=== PATIENT | female | born 1975 | race Caucasian/White ===

== ENCOUNTER 2020-09-07 11:04 | Inpatient (IN) | payer OTHER ==
[~2020-09-07] VITALS: Ht 165.1 cm; Wt 116.0 kg
[2020-09-07] MEDS ORDERED: HYDR25TA84 PO (11:10)
[2020-09-07] MEDS ORDERED: ATOR20TA86 PO (11:10)
[2020-09-07] MEDS ORDERED: CHOL100044 PO (11:10)
[2020-09-07] MEDS ORDERED: FERR325T24 PO (11:10)
[2020-09-07] MEDS ORDERED: FURO40 PO (11:10)
[2020-09-07] MEDS ORDERED: ASPI-1450 PO (11:10)
[2020-09-07] MEDS ORDERED: LOSA50TA37 PO (11:10)
[2020-09-07] MEDS ORDERED: HydrALAZINE HCL 20 MG/ML VIAL IVP ONE ×3 (11:15→14:45)
[2020-09-07 12:03] LABS: BASOPHILS % (AUTO) 0.5 % (0.0-2.0); EOSINOPHILS % (AUTO) 0.5 % (1.0-6.0); HEMATOCRIT 37.3 % (36-46); HEMOGLOBIN 11.9 g/dL (12.0-16.0); LYMPHOCYTES # (AUTO) 2.2 K/uL (1.0-4.8); LYMPHOCYTES % (AUTO) 20.1 % (22.0-44.0); MEAN CORPUSCULAR HEMOGLOBIN 24.4 pg (26.0-34.0); MEAN CORPUSCULAR VOLUME 76 fL (80-100); MONOCYTES # (AUTO) 0.5 K/uL (0.1-1.0); MONOCYTES % (AUTO) 4.8 % (2.0-9.0); NEUTROPHILS # (AUTO) 7.9 K/uL (1.8-7.7); NEUTROPHILS % (AUTO) 74.1 % (40.0-70.0); PLATELET COUNT (AUTO) 253 K/uL (150-450); RED BLOOD CELL COUNT(AUTO) 4.89 MIL/uL (4.00-5.20)
[2020-09-07 12:17] LABS: ANION GAP 10 mmol/L (8-16); CALCIUM, TOTAL 8.9 mg/dL (8.8-10.5); CARBON DIOXIDE 27 mmol/L (22-29); CHLORIDE 102 mmol/L (98-107); CREATININE 0.94 mg/dL (0.60-1.30); GLOMERULAR FILTR. RATE CALC > 60 mL/min (>60); GLUCOSE,RANDOM 104 mg/dL (70-110); POTASSIUM 3.9 mmol/L (3.5-5.1); SODIUM SERUM 139 mmol/L (136-145); UREA NITROGEN, BLOOD 15 mg/dL (7-18)
[2020-09-07 12:27] LABS: ALANINE AMINOTRANSFERASE 16 U/L (12-78); ALBUMIN 3.3 g/dL (3.4-5.0); ALKALINE PHOSPHATASE 89 U/L (46-116); ASPARTATE AMINOTRANSFERASE 13 U/L (15-37); BILIRUBIN,TOTAL 0.3 mg/dL (0.1-1.0); CREATINE KINASE, TOTAL ONLY 32 U/L (26-192); HCG,QUANTITATIVE < 1 mIU/mL (0-6); TOTAL PROTEIN, SERUM 7.7 g/dL (6.4-8.2)
[2020-09-07 12:32] LABS: B-TYPE NATRIURETIC PEPTIDE 236 pg/mL (0-100)
[2020-09-07 12:55] LABS: PROTHROMBIN TIME 10.8 SEC (9.4-11.6)
[2020-09-07] MEDS ORDERED: MORPHINE SULFATE 4 MG/ML SYRINGE IVP ONE (13:30)
[2020-09-07] MEDS ORDERED: ONDANSETRON HCL 4 MG/2 ML VIAL IVP ONE (13:30)
[2020-09-07] MEDS ORDERED: CloNIDine HCL 0.1 MG TABLET PO ONE (13:45)
[2020-09-07] MEDS ORDERED: NITROGLYCERIN 2% (1 GM=INCH) PACKET TP ONE (14:45)
[2020-09-07 16:55] LABS: COVID AG,FIA SOURCE NASOPHARYNGEAL
[2020-09-07] MEDS ORDERED: FUROSEMIDE 40 MG/4 ML VIAL IVP ONE (18:00)
[2020-09-07 19:36] VITALS: BP 166/97
[2020-09-07] MEDS ORDERED: MAGNESIUM HYDROXIDE SUSPENSION 30 ML UDCUP PO PRN (20:30)
[2020-09-07] MEDS ORDERED: BISACODYL 10 MG RECTAL RECTAL SUPPOSITORY PR PRN (20:30)
[2020-09-07] MEDS ORDERED: MORPHINE SULFATE 2 MG/ML SYRINGE IVP PRN (20:30)
[2020-09-07] MEDS ORDERED: ONDANSETRON HCL 4 MG/2 ML VIAL IVP PRN (20:30)
[2020-09-07] MEDS ORDERED: ZOLPIDEM TARTRATE 5 MG TABLET PO PRN (20:30)
[2020-09-07] MEDS ORDERED: IPRATROPIUM BROMIDE 0.5 MG/2.5 ML NEB SOLUTION NEB PRN (20:30)
[2020-09-07] MEDS ORDERED: ALBUTEROL SULFATE 2.5 MG/0.5 ML NEB SOLUTION NEB PRN (20:30)
[2020-09-07] MEDS: FUROSEMIDE 40 MG TABLET PO SCH (21:35)
[2020-09-08] VITALS (9 sets, daily range): BP systolic 149–201; BP diastolic 70–116
[2020-09-08] MEDS: HEPARIN SODIUM,PORCINE 5,000 UNITS/ML VIAL SQ SCH ×4 (00:19→16:35)
[2020-09-08] MEDS: HydrALAZINE HCL 20 MG/ML VIAL IVP PRN (06:04)
[2020-09-08] MEDS: FUROSEMIDE 40 MG TABLET PO SCH ×2 (08:16→21:59)
[2020-09-08] MEDS: FERROUS SULFATE 325 MG EC TABLET PO SCH ×2 (09:00→11:03)
[2020-09-08] MEDS: ASPIRIN 81 MG CHEWABLE TABLET PO SCH ×2 (09:00→11:04)
[2020-09-08] MEDS: ATORVASTATIN CALCIUM 20 MG TABLET PO SCH ×2 (09:00→11:04)
[2020-09-08] MEDS: LOSARTAN POTASSIUM 50 MG TABLET PO SCH ×2 (09:00→11:04)
[2020-09-08] MEDS: CHOLECALCIFEROL (VIT D3) 1,000 UNITS [25 MCG] TABLET PO SCH ×2 (09:00→11:04)
[2020-09-08] MEDS ORDERED: SESTAMIBI TC99M/UD ISOTOPE 1 EA INJ INJ ONE ×2 (09:50→10:40)
[2020-09-08] MEDS: AmLODIPine BESYLATE 5 MG TABLET PO SCH ×4 (10:15→21:59)
[2020-09-08] MEDS: METOPROLOL SUCCINATE 50 MG ER TABLET PO SCH (10:15)
[2020-09-08] MEDS: ACETAMINOPHEN 325 MG TABLET PO PRN (18:14)
[2020-09-09] MEDS: HEPARIN SODIUM,PORCINE 5,000 UNITS/ML VIAL SQ SCH ×3 (00:08→16:23)
[2020-09-09 05:04] VITALS: BP 187/93
[2020-09-09] MEDS: HydrALAZINE HCL 20 MG/ML VIAL IVP PRN (05:12)
[2020-09-09] MEDS: HYDROCODONE/ACETAMINOPHEN 5-325 MG TABLET PO PRN ×2 (05:13→09:46)
[2020-09-09 07:09] VITALS: BP 179/99
[2020-09-09] MEDS: CHOLECALCIFEROL (VIT D3) 1,000 UNITS [25 MCG] TABLET PO SCH (07:58)
[2020-09-09] MEDS: ASPIRIN 81 MG CHEWABLE TABLET PO SCH (07:58)
[2020-09-09] MEDS: FUROSEMIDE 40 MG TABLET PO SCH ×2 (07:59→20:59)
[2020-09-09] MEDS: AmLODIPine BESYLATE 5 MG TABLET PO SCH ×2 (07:59→20:59)
[2020-09-09] MEDS: METOPROLOL SUCCINATE 50 MG ER TABLET PO SCH (07:59)
[2020-09-09] MEDS: FERROUS SULFATE 325 MG EC TABLET PO SCH (07:59)
[2020-09-09] MEDS: LOSARTAN POTASSIUM 50 MG TABLET PO SCH (07:59)
[2020-09-09] MEDS: ATORVASTATIN CALCIUM 20 MG TABLET PO SCH (08:10)
[2020-09-09 11:15] VITALS: BP 158/71
[2020-09-09 16:17] VITALS: BP 143/73
[2020-09-09 17:50] LABS: BASOPHILS % (AUTO) 0.6 % (0.0-2.0); EOSINOPHILS % (AUTO) 0.6 % (1.0-6.0); HEMATOCRIT 37.8 % (36-46); LYMPHOCYTES # (AUTO) 2.6 K/uL (1.0-4.8); LYMPHOCYTES % (AUTO) 30.6 % (22.0-44.0); MEAN CORPUSCULAR HEMOGLOBIN 24.5 pg (26.0-34.0); MEAN CORPUSCULAR HGB CONC 31.6 G/dL (31.0-37.0); MEAN CORPUSCULAR VOLUME 78 fL (80-100); MONOCYTES # (AUTO) 0.7 K/uL (0.1-1.0); MONOCYTES % (AUTO) 7.8 % (2.0-9.0); NEUTROPHILS # (AUTO) 5.1 K/uL (1.8-7.7); NEUTROPHILS % (AUTO) 60.4 % (40.0-70.0); PLATELET COUNT (AUTO) 298 K/uL (150-450); RED BLOOD CELL COUNT(AUTO) 4.88 MIL/uL (4.00-5.20); RED CELL DISTRIBUTION WIDTH 17.4 % (11.5-14.5)
[2020-09-09 18:06] LABS: CALCIUM, TOTAL 8.8 mg/dL (8.8-10.5); CREATININE 1.42 mg/dL (0.60-1.30); POTASSIUM 4.2 mmol/L (3.5-5.1)
[2020-09-09 18:26] LABS: ALBUMIN 3.2 g/dL (3.4-5.0); BILIRUBIN,TOTAL 0.3 mg/dL (0.1-1.0); TOTAL PROTEIN, SERUM 7.6 g/dL (6.4-8.2)
[2020-09-09 20:28] VITALS: BP 167/85
[2020-09-09] MEDS: ACETAMINOPHEN 325 MG TABLET PO PRN (21:01)
[2020-09-10] VITALS (9 sets, daily range): BP systolic 146–190; BP diastolic 70–105
[2020-09-10] MEDS: HEPARIN SODIUM,PORCINE 5,000 UNITS/ML VIAL SQ SCH ×4 (00:25→23:48)
[2020-09-10 06:05] LABS: BASOPHILS % (AUTO) 0.5 % (0.0-2.0); EOSINOPHILS % (AUTO) 0.8 % (1.0-6.0); HEMATOCRIT 37.2 % (36-46); HEMOGLOBIN 11.9 g/dL (12.0-16.0); LYMPHOCYTES # (AUTO) 2.5 K/uL (1.0-4.8); LYMPHOCYTES % (AUTO) 28.3 % (22.0-44.0); MEAN CORPUSCULAR HEMOGLOBIN 24.7 pg (26.0-34.0); MEAN CORPUSCULAR HGB CONC 32.1 G/dL (31.0-37.0); MEAN CORPUSCULAR VOLUME 77 fL (80-100); MONOCYTES # (AUTO) 0.6 K/uL (0.1-1.0); MONOCYTES % (AUTO) 6.3 % (2.0-9.0); NEUTROPHILS # (AUTO) 5.6 K/uL (1.8-7.7); NEUTROPHILS % (AUTO) 64.1 % (40.0-70.0); PLATELET COUNT (AUTO) 291 K/uL (150-450); RED BLOOD CELL COUNT(AUTO) 4.82 MIL/uL (4.00-5.20); RED CELL DISTRIBUTION WIDTH 17.1 % (11.5-14.5)
[2020-09-10 06:27] LABS: ALBUMIN 3.2 g/dL (3.4-5.0); BILIRUBIN,TOTAL 0.5 mg/dL (0.1-1.0); CALCIUM, TOTAL 8.8 mg/dL (8.8-10.5); CREATININE 1.28 mg/dL (0.60-1.30); POTASSIUM 4.2 mmol/L (3.5-5.1); TOTAL PROTEIN, SERUM 7.5 g/dL (6.4-8.2)
[2020-09-10] MEDS: FERROUS SULFATE 325 MG EC TABLET PO SCH (08:57)
[2020-09-10] MEDS: FUROSEMIDE 40 MG TABLET PO SCH ×2 (08:57→20:57)
[2020-09-10] MEDS: ASPIRIN 81 MG CHEWABLE TABLET PO SCH (08:57)
[2020-09-10] MEDS: LOSARTAN POTASSIUM 50 MG TABLET PO SCH (08:57)
[2020-09-10] MEDS: ATORVASTATIN CALCIUM 20 MG TABLET PO SCH (08:58)
[2020-09-10] MEDS: AmLODIPine BESYLATE 5 MG TABLET PO SCH ×3 (08:58→20:57)
[2020-09-10] MEDS: CHOLECALCIFEROL (VIT D3) 1,000 UNITS [25 MCG] TABLET PO SCH (09:00)
[2020-09-10] MEDS: METOPROLOL SUCCINATE 50 MG ER TABLET PO SCH (09:00)
[2020-09-10] MEDS ORDERED: CloNIDine HCL 0.1 MG TABLET PO SCH (11:30)
[2020-09-10] MEDS: ACETAMINOPHEN 325 MG TABLET PO PRN (20:57)
[2020-09-11 04:14] VITALS: BP 157/79
[2020-09-11 07:08] VITALS: BP 163/107
[2020-09-11] MEDS: HEPARIN SODIUM,PORCINE 5,000 UNITS/ML VIAL SQ SCH ×2 (07:51→16:08)
[2020-09-11] MEDS: CHOLECALCIFEROL (VIT D3) 1,000 UNITS [25 MCG] TABLET PO SCH (08:00)
[2020-09-11] MEDS: ASPIRIN 81 MG CHEWABLE TABLET PO SCH (08:00)
[2020-09-11] MEDS: FERROUS SULFATE 325 MG EC TABLET PO SCH (08:00)
[2020-09-11] MEDS: ATORVASTATIN CALCIUM 20 MG TABLET PO SCH (08:00)
[2020-09-11] MEDS: METOPROLOL SUCCINATE 50 MG ER TABLET PO SCH (09:00)
[2020-09-11] MEDS: FUROSEMIDE 40 MG TABLET PO SCH (09:00)
[2020-09-11] MEDS: AmLODIPine BESYLATE 5 MG TABLET PO SCH (09:08)
[2020-09-11] MEDS: LOSARTAN POTASSIUM 50 MG TABLET PO SCH (09:08)
[2020-09-11 09:20] VITALS: BP 192/89
[2020-09-11] MEDS ORDERED: REGADENOSON 0.4 MG/5 ML PF SYRINGE IVP ONE (09:38)
[2020-09-11 09:45] VITALS: BP 179/70
[2020-09-11 11:10] VITALS: BP 162/82
[2020-09-11] MEDS: HydrALAZINE HCL 20 MG/ML VIAL IVP PRN (15:39)
[2020-09-11 15:50] VITALS: BP 166/85
[2020-09-11] MEDS ORDERED: AMLO-257 PO (17:25)
[2020-09-11] MEDS ORDERED: METO-558 PO (17:28)
[2020-09-11] MEDS: AmLODIPine BESYLATE 10 MG TABLET PO SCH ×2 (17:53→18:03)
== END 2020-09-11 18:20 | disposition home or self-care (01) | DRG 199 ==
LOC: EMS 11:10 → 5S 18:27
PROVIDERS: ADMIT Hospitalist; ATTEND Hospitalist
PROC: 4A02XM4 Measurement of Cardiac Total Activity, External Approach (ICD-10-PCS; principal; 2020-09-11)
PROC: 3E073KZ Introduction of Other Diagnostic Substance into Coronary Artery, Percutaneous Approach (ICD-10-PCS; 2020-09-11)
DX: I16.1 Hypertensive emergency (principal); I11.0 Hypertensive heart disease with heart failure; E78.5 Hyperlipidemia, unspecified; E66.9 Obesity, unspecified; Z68.41 Body mass index [BMI] 40.0-44.9, adult; D64.9 Anemia, unspecified; E44.0 Moderate protein-calorie malnutrition; M17.11 Unilateral primary osteoarthritis, right knee; J45.909 Unspecified asthma, uncomplicated; I50.9 Heart failure, unspecified; F41.9 Anxiety disorder, unspecified; G89.29 Other chronic pain; Z20.822 Contact with and (suspected) exposure to COVID-19; Z79.82 Long term (current) use of aspirin
CPT/HCPCS: 78452; 87426; 93005; 93017; 99285; A9500; J0360; J1644; J1940; J2270; J2405